=== PATIENT | male | born 1980 | race Hispanic/Latino ===

== ENCOUNTER 2024-02-15 16:20 | Emergency (ER) | payer OTHER ==
[2024-02-15] MEDS ORDERED: Bacitracin 1 PK ONE (18:46)
[2024-02-16] MEDS ORDERED: Naproxen 500 MG TAB ONE (00:30)
== END 2024-02-15 19:30 ==
LOC: NAV ERS 16:20 → EEVIPCON 16:20 → NAV ERS 19:30
DX: E11.621 Type 2 diabetes mellitus with foot ulcer (principal); L97.311 Non-pressure chronic ulcer of right ankle limited to breakdown of skin; I10 Essential (primary) hypertension; Z79.82 Long term (current) use of aspirin; Z79.84 Long term (current) use of oral hypoglycemic drugs; Z79.899 Other long term (current) drug therapy; Z79.4 Long term (current) use of insulin